=== PATIENT | female | born 1990 | race Caucasian/White ===

== ENCOUNTER 2019-12-07 17:08 | Emergency (ER) | payer OTHER ==
[2019-12-07] MEDS ORDERED: CEFTRIAXONE INJ 1000 MG VIAL IM ONE (17:34)
[2019-12-07] MEDS ORDERED: LIDOCAINE 1% INJ-PF (10 MG/ML) 30 ML SDV INJ ONE (17:34)
--- NOTE | 2019-12-07 17:44 | ER Document Report ---
ED GI/ - General Chief Complaint: Flank Pain Stated Complaint: POSSIBLE KIDNEY INFECTION Time Seen by Provider: 12/07/19 17:29 Mode of Arrival: Ambulatory Information source: Patient Notes: 29-year-old female presents to ED for complaint of bilateral flank pain since this morning. She states she has had a UTI since Monday. She states she was taking Azo but did not go to the doctor finally she got a telephone visit and they ordered Flagyl and Macrobid. She picked them up today has taken 1 dose but the pain is so bad she wants to be seen and treated for something with pain and she thinks that the Macrobid is not: Help with her UTI now that is is gone to her kidneys. I have discussed this with patient will give a injection of Rocephin as soon as we get a urine and his symptoms I get a negative urine we will give her a IM injection of Toradol. I have also ordered urine culture. To ensure that the Macrobid and Rocephin will cover the UTI. Patient is alert oriented respirations regular nonlabored speaking in full sentences. Constitutional: Negative for fever. HENT: Negative for sore throat. Eyes: Negative for visual changes. Cardiovascular: Negative for chest pain. Respiratory: Negative for shortness of breath. Gastrointestinal: Negative for abdominal pain, vomiting or diarrhea. Genitourinary: With urination which is now gone to flank pain. She states she knows she has a UTI but she is letter goes along the nodes in her kidneys. She states she did call her primary doctor they did start her on Macrobid and Flagyl for the bacterial vaginosis but the pain is so bad she had to come to the emergency room. She states her last menstrual period was 2 weeks ago. Musculoskeletal: Lateral flank pain. Skin: Negative for rash. Neurological: Negative for headaches, weakness or numbness. 10 point ROS negative except as marked above and in HPI. VITAL SIGNS: Within normal limits. GENERAL: No acute distress, non-toxic appearance. HEAD: Normal with no signs of head trauma. EYES: PERRLA, EOMI, conjunctiva normal, no discharge. EARS: Hearing grossly intact. NOSE: Normal. THROAT: Oropharynx is normal. NECK: Normal range of motion, no tenderness, supple, no lymphadenopathy, No adenopathy, no JVD. CHEST: Clear breath sounds bilaterally. No wheezes, rales, or rhonchi. CARDIAC: Regular rate and rhythm. S1 and S2, without murmurs, gallops, or rubs. VASCULAR: No Edema. Peripheral pulses normal and equal in all extremities. ABDOMEN: Normal and soft with no tenderness, no masses or pulsatile masses. GASTROINTESTINAL: Bowel sounds normal GENITOURINARY: Tenderness to bilateral flank and pelvic area. She states she knows she has a urinary tract infection that she left go until now she is hurting in her back. LYMPATHTIC: No lymphadenopathy noted. MUSCULOSKELETAL: Good range of motion of all major joints. Extremities without clubbing, cyanosis or edema. NEUROLOGICAL: Alert and oriented x 3. No focal sensory or strength deficits. Speech normal. Follows commands appropriately. PSYCHIATRIC: Normal Affect, judgement and mood. SKIN: Normal appearance with no rashes or lesions. - HPI Patient complains to provider of: Flank pain, Other - Pain with urination Onset: Last week - The flank pain started this morning Timing/Duration: Persistent, Worse Quality of pain: Sharp Severity at maximum: Moderate Severity in ED: Moderate Pain Level: 3 Location: Left flank, Right flank Vaginal bleeding (Compared to normal period): None LMP: 2 weeks ago Associated symptoms: Urinary frequency, Urinary urgency, Other - With urination and now she has flank pain radiating around to the pelvic area Exacerbated by: Movement, Walking Relieved by: Denies Similar symptoms previously: Yes Recently seen / treated by doctor: Yes - Related Data Allergies/Adverse Reactions: No Known Allergies Allergy (Unverified 12/07/19 17:50) Past Medical History - General Information source: Patient - Social History Smoking Status: Former Smoker Frequency of alcohol use: Occasional Drug Abuse: None Lives with: Family Family History: Reviewed & Not Pertinent Patient has suicidal ideation: No - Past Medical History Cardiac Medical History: Reports: None Pulmonary Medical History: Reports: None EENT Medical History: Reports: None Neurological Medical History: Reports: None Endocrine Medical History: Reports: None Renal/ Medical History: Reports: None Malignancy Medical History: Reports: None GI Medical History: Reports: None Musculoskeletal Medical History: Reports None Skin Medical History: Reports None Psychiatric Medical History: Reports: None Traumatic Medical History: Reports: None Infectious Medical History: Reports: None Surgical Hx: Negative Past Surgical History: Reports: None - Immunizations Immunizations up to date: Yes Hx Diphtheria, Pertussis, Tetanus Vaccination: Yes Physical Exam - Vital signs Vitals: Temp Pulse Resp BP Pulse Ox 98.4 F 88 18 121/78 100 12/07/19 17:13 12/07/19 17:13 12/07/19 17:13 12/07/19 17:13 12/07/19 17:13 Course - Re-evaluation Re-evalutation: 12/07/19 21:23 Patient's urine did show ketones of 80. She states she was very uncomfortable. I did give her a liter of fluid and Toradol IV. She stated she felt much better afterwards and she was discharged home. - Vital Signs Vital signs: Temp Pulse Resp BP Pulse Ox 98.2 F 76 16 112/65 100 12/07/19 20:00 12/07/19 20:00 12/07/19 20:00 12/07/19 20:00 12/07/19 20:00 - Laboratory Laboratory results interpreted by me: 12/07/19 17:47 Urine Protein 30 H Urine Ketones 80 H Urine Blood SMALL H Discharge - Discharge Clinical Impression: UTI (urinary tract infection) Qualifiers: Urinary tract infection type: acute pyelonephritis Qualified Code(s): N10 - Acute pyelonephritis Condition: Stable Disposition: HOME, SELF-CARE Additional Instructions: Pyelonephritis Your evaluation shows evidence of pyelonephritis. This is an infection in the kidney. Typical symptoms are fever, pain in the flank, pain on urination, and frequent urination. Many cases of pyelonephritis can be treated at home. Hospital care may be necessary for patients who are very ill, or elderly or . Pyelonephritis is treated with antibiotics. Be sure to take all the medication as prescribed. Drink plenty of liquids (about three quarts per day). You may take acetaminophen for fever. You should feel significantly improved within two days. You should have a recheck of your urine in about one week to insure that the infection is gone. Return for a re-examination if your symptoms worsen in any way -- such as high fever, shaking chills, severe weakness or dizziness, severe pain, or inability to pass your urine. NITROFURANTOIN (MACRODANTIN, MACROBID): Take your Macrobid as prescribed by your primary care doctor You have received a prescription for nitrofurantoin (Macrodantin). This antibiotic is used for urinary tract infections. Women who are or nursing should notify the physician before taking this medicine. If you have ever had a problem caused by this medication in the past, be sure the physician is aware of it. Common side effects of this medicine include nausea, vomiting, or decreased appetite. Notify your physician if these side effects become severe. Immediately stop this medicine and call the physician if you develop cough, shortness of breath, chest pain, weakness, jaundice (yellow color of the skin and whites of the eyes), or a skin rash. Rocephin You have been given an injection of an antibiotic called Rocephin (ceftriaxone). Sometimes the injection must be combined with antibiotic pills. For some infections, such as an uncomplicated ear infection, Rocephin provides all the antibiotic that's needed. The antibiotic will be in your body for about two days. For serious infections, we usually repeat doses of Rocephin daily. Side effects are very unusual following a shot. Women may develop vaginal yeast infections, and babies can get yeast (thrush) in the mouth following the use of antibiotics. Contact your physician if you have symptoms with this medication. Allergy to this antibiotic can result in hives, wheezing, faintness, or itching. If symptoms of allergy occur, call the doctor at once. Toradol Injection You have been given an injection of ketorolac tromethamine (Toradol). This is an excellent, safe drug for pain control. It also has potent antiinflammatory action. You should have significant pain relief within about one hour. Toradol is not addicting and is non-sedating. It does not interfere with driving or work. Call or return if you develop itching, hives, shortness of breath, or rash. Intravenous (IV) Fluids As part of your care today, you received intravenous (IV) fluids. IV fluids are administered to patients who are dehydrated or to those who have certain chemical (electrolyte) abnormalities that need correcting. URINARY ANESTHETIC AGENT: You have been given a medication (Pyridium) for urinary tract discomfort. This medicine numbs the lining of the bladder and urethra, resulting in less pain, burning, and urgency. You may take it as needed, according to instructions. When the symptoms resolve, you can stop this medication (be sure to continue any other medications the doctor has given you). This medicine turns the urine a dark orange. It may stain underwear. Occasionally, it can cause nausea. Return for evaluation if there are any unexpected effects, such as itching, hives, or shortness of breath. FOLLOW-UP CARE: If you have been referred to a physician for follow-up care, call the physicians office for an appointment as you were instructed or within the next two days. If you experience worsening or a significant change in your symptoms, notify the physician immediately or return to the Emergency Department at any time for re-evaluation. Prescriptions: Phenazopyridine HCl [Pyridium] 100 mg PO TIDP PRN #14 tablet PRN Reason: Forms: Return to Work
[2019-12-07 18:17] LABS: APPEARANCE,URINE CLEAR; BILIRUBIN,URINE NEGATIVE (NEGATIVE); COLOR,URINE YELLOW; GLUCOSE, URINE NEGATIVE (NEGATIVE); KETONES,URINE 80 mg/dL (NEGATIVE); LEUKOCYTE ESTERASE,URINE NEGATIVE (NEGATIVE); NITRITE,URINE NEGATIVE (NEGATIVE); PROTEIN,URINE 30 mg/dL (NEGATIVE); URINE SPECIFIC GRAVITY 1.017; UROBILINOGEN,URINE NEGATIVE mg/dL (<2.0)
[2019-12-07] MEDS ORDERED: KETOROLAC TROMETHAMINE INJ/PF 30 MG/1 ML SDV IM ONE (18:23)
[2019-12-07] MEDS ORDERED: NORMAL SALINE 1000 ML 1,000 ML IV ONE (18:27)
[2019-12-07] MEDS ORDERED: KETOROLAC TROMETHAMINE INJ/PF 30 MG/1 ML SDV IV ONE (18:27)
[2019-12-07] MEDS ORDERED: PHENAZOPYRIDINE HCL 100 MG TABLET PO ONE (18:34)
[2019-12-07 20:03] VITALS: BP 112/65
== END 2019-12-07 20:04 | disposition home or self-care (01) ==
LOC: ER 17:08
DX: N10 Acute pyelonephritis (principal); Z87.891 Personal history of nicotine dependence
CPT/HCPCS: 99284; 96372; 96361; 96374; 87086; 81025; 81001; J3490 ×2; J1885; J0696; J7030